=== PATIENT | female | born 1990 | race Caucasian/White ===

== ENCOUNTER 2018-03-26 13:12 | Day surgery (SDC) | payer SELFPAY ==
[2018-03-14 10:36] VITALS: BMI 27.1
[~2018-03-26 13:12] MED LIST: BACITRACIN 15 GM TUBE TOPICAL OINTMENT ONE; BUPIVACAINE HCL/PF 2.5 MG/ML - 30 ML VIAL IJ ONE; DESFLURANE GAS 240 ML BOTTLE IH ONE; DEXAMETHASONE SOD PHOSPHATE 4 MG/1 ML VIAL ONE; EPINEPHrine/PF 1 MG/1 ML (1:1,000) AMPULE ONE; HALOPERIDOL LACTATE 5 MG/ML ONE; HEPARIN NA (PORCINE) 5,000 UNITS/ML 1ML VIAL ONE; KETOROLAC TROMETHAMINE 30 MG/1 ML VIAL ONE; LIDOCAINE HCL 1% PRESERVATIVE FREE - 30ML VIAL ONE; LIDOCAINE HCL 2% JELLY (5 ML/TUBE) ONE; MIDAZOLAM HCL 2 MG/2 ML SINGLE DOSE VIAL ONE; ONDANSETRON 4 MG/2 ML VIAL IVPB PRN; ONDANSETRON 4 MG/2 ML VIAL IVPUSH PRN; ONDANSETRON 4 MG/2 ML VIAL ONE; PROMETHAZINE HCL 25 MG/1 ML VIAL IVPUSH PRN; PROPOFOL 20 ML ONE; ROCURONIUM BROMIDE 50 MG/5 ML VIAL ONE; ceFAZolin SODIUM 1 GM VIAL ONE; fentaNYL CITRATE 250 MCG/5 ML VIAL ONE; morphine SULFATE 4 MG/ML VIAL IVPUSH PRN; oxyCODONE HCL 5 MG TABLET PO PRN
[2018-03-26] MEDS ORDERED: LACTATED RINGERS SOLUTION 1,000 ML IV SCH (13:15)
--- NOTE | 2018-03-26 13:16 | OP ---
Operative Note - Note: Operative Date: 03/26/18 Pre-Operative Diagnosis: abdominal adiposity Operation: abdominoplasty with liposuction Post-Operative Diagnosis: Same as Pre-op Surgeon: Don Bazzi Anesthesia: General Operative Report Dictated: Yes
[2018-03-26] MEDS: CEFAZOLIN 1 GM/D5W 1 GRAM/50 ML BAG IVPB SCH ×2 (15:41→21:30)
--- NOTE | 2018-03-26 19:08 | PN ---
Progress Note (short form) - Note Progress Note: Post op check: VSS AF All PADMA' thin and functioning well. NV in-tact, no collecions, OOB randell, anticipate DC in AM
--- NOTE | 2018-03-26 21:16 | OP ---
DATE OF OPERATION: 03/26/2018 TITLE OF PROCEDURE: Abdominoplasty with bilateral flank liposuction. PREOPERATIVE DIAGNOSIS: Abdominal lipodystrophy. POSTOPERATIVE DIAGNOSIS: Abdominal lipodystrophy. ATTENDING SURGEON: Don Bazzi MD ASSISTANTS: None. ANESTHESIA: General endotracheal. The patient is marked in the holding area, awake and aware of all incisions and resulting scars. She is given 5000 units of subcutaneous heparin preoperatively. She is brought to the operating room. IZABEL hose and sequential compression stockings are applied bilaterally. A Donohue catheter is placed after anesthesia is given. A pillow is placed below the knees. All pressure points are carefully padded. Position is carefully checked by surgical and anesthesia teams. She is prepped and draped in standard surgical fashion. A timeout is called. Patient is given 2 g of Ancef. Patient, procedure, sites, and sides are all verified. At this point, incision is made at the infrapannicular crease, and dissection is carried down to the level of the abdominal wall fascia. Dissection is then carried along the abdominal wall fascia to the level of the umbilicus. The umbilicus is then circumcised and developed on a fibrofatty stalk to the base of the abdominal muscular fascia. At this point, dissection is then continued cephalad to the xiphoid process and the midline costal margins bilaterally. Midline is identified, and a midline plication is performed with a series of interrupted, buried number 1 Prolene suture and [id number] sutures both above and below the umbilicus. A second layer of running locking number 1 Prolene suture is used to reinforce the plication both above and below the umbilicus. The umbilicus is preserved with good with both superior and inferior. The flap is trimmed of subscarpa's fat. Hemostasis then meticulously achieved. A total of 40 mL of 0.25% Marcaine plain is then injected into the fascia. Patient is brought to a 30-degree, seated, upright position where the abdominoplasty flap is translocated, and excess skin and fat are marked and excised. The distal central tip of the flap is pink and viable with good dermal bleeding. With the skin flap tailor tacked in position, the umbilicus is then marked for translocation. A fatty core is removed from the abdominoplasty flap for translocation in a standard Star Trek pattern with an inferior notch. The umbilicus is translocated through this defect and is secured with a series of interrupted, buried, deep dermal 3-0 Monocryl suture and a series of interrupted and running 5-0 nylon suture. Size 10 flat PADMA drains are then placed, one from the pubic skin and one on either end of the incision. At this point, wetting solution is infiltrated into the tissues for liposuction. The wetting solution is 1 L of normal saline with 1 ampule of epinephrine. There is no lidocaine. A total of 1 L is infiltrated. After 20 minutes, liposuction is performed with a power-assisted MicroAire system, a 5-mm cannula. A total of 350 mL of lipoaspirate per flank is yielded. Drains are secured with 2-0 silk drain suture. Closure is then performed with a series of interrupted, buried, Lobito layer, superficial fascial system 0 Vicryl sutures, followed by a series of interrupted, buried, deep dermal 3-0 Monocryl suture, followed by a running 3-0 Monocryl V-Loc mid-dermal suture. Several 4-0 nylons are used to align the skin edges. Dressings are applied with 1/2-inch Steri-Strips full length; bacitracin and Xeroform in the umbilicus; 4 x 4 and ABD gauze to the abdomen; an abdominal binder. Patient is maintained in a flexed position, transferred to a hospital bed, and transferred to Recovery without complication. Anaya [id number]
[2018-03-26] MEDS: oxyCODONE HCL 5 MG TABLET PO PRN (22:46)
[2018-03-27] MEDS: CEFAZOLIN 1 GM/D5W 1 GRAM/50 ML BAG IVPB SCH ×2 (02:15→09:37)
[2018-03-27 02:39] VITALS: TEMP 98.3
[2018-03-27] MEDS: oxyCODONE HCL 5 MG TABLET PO PRN (06:31)
[2018-03-27 06:37] VITALS: BP 123/68; PULSE 91
[2018-03-27] MEDS ORDERED: HEPARIN NA (PORCINE) 5,000 UNITS/ML 1ML VIAL SQ SCH (08:00)
--- NOTE | 2018-03-27 10:40 | PN ---
Progress Note, Physician Chief Complaint: s/p abdominoplasty post op day one History of Present Illness: under general anesthesia - Current Medication List Current Medications: Active Medications Heparin Sodium (Porcine) (Heparin -) 5,000 unit SQ BID@0800,1999 [facility] Last Admin: 03/27/18 08:30 Dose: 5,000 unit Lactated Ringer's (Lactated Ringers Solution) 1,000 mls @ 75 mls/hr IV ASDIR MAYTE Cefazolin Sodium (Ancef 1 Gm Premixed Ivpb -) 1 gram in 50 mls @ 100 mls/hr IVPB Q6H-IV MAYTE Stop: 04/01/18 14:59 Last Admin: 03/27/18 09:37 Dose: 100 mls/hr Morphine Sulfate (Morphine Sulfate) 2 mg IVPUSH Q4H PRN PRN Reason: PAIN LEVEL 6-10 Last Admin: 03/26/18 18:44 Dose: 2 mg Ondansetron HCl (Zofran Injection) 8 mg IVPB Q6H PRN PRN Reason: NAUSEA Oxycodone HCl (Roxicodone -) 10 mg PO Q4H PRN PRN Reason: PAIN LEVEL 4 - 6 Last Admin: 03/27/18 06:31 Dose: 10 mg - Objective Vital Signs: Vital Signs Temperature 98.3 F 03/27/18 05:00 Pulse Rate 91 H 03/27/18 05:00 Respiratory Rate 18 03/27/18 05:00 Blood Pressure 123/68 03/27/18 05:00 O2 Sat by Pulse Oximetry (%) 99 03/27/18 08:12 Constitutional: Yes: Well Nourished Cardiovascular: Yes: WNL Respiratory: Yes: WNL Gastrointestinal: Yes: WNL Assessment/Plan No anesthetic complications or complaints, pain well controlled. dept of anesthesia will sign off care at this time
--- NOTE | 2018-03-27 11:59 | PN ---
Progress Note (short form) - Note Progress Note: VSS AF, healing well. PADMA all thin and functioning OK fof discharge home
--- NOTE | 2018-03-29 09:10 | PATH ---
Surgical Pathology Report Patient Name: JUSTIN ROQUE Med. Rec. #: [id number] /Age/Gender: 1990 (Age: 27) / F Account: [id number] Location: [facility] Taken: 03/26/2018 Received: 03/26/2018 Reported: 03/29/2018 Physicians: Don Bazzi Specimen(s) Received ABDOMINAL SKIN AND FAT Clinical History Cosmetic Final Diagnosis ABDOMINAL SKIN AND FAT, ABDOMINOPLASTY: UNREMARKABLE SKIN AND FIBROADIPOSE TISSUE. MACROSCOPIC DIAGNOSIS. Electronically Signed Abena Brice M.D. Gross Description Received in formalin labeled "abdominal skin and fat," is a 2276 g, 33.0 x 20.0 x 5.0 cm aggregate of multiple perez, irregular, unremarkable portions of skin with underlying soft tissue. Sectioning reveals yellow, lobulated adipose tissue. No lesions are identified. No sections are submitted, gross only. /03/28/2018 saudi03/28/2018
== END 2018-03-27 15:00 | disposition home or self-care (01) ==
LOC: FM/S 13:12 → FASUSAT 13:12 → FASU 13:12 → FM/S 14:30 → FASUSAT 03-27 15:00
PROVIDERS: ATTEND Plastic Surgery
PROC: 0J080ZZ Alteration of Abdomen Subcutaneous Tissue and Fascia, Open Approach (ICD-10-PCS; principal; 2018-03-26 08:45)
PROC: 0J083ZZ Alteration of Abdomen Subcutaneous Tissue and Fascia, Percutaneous Approach (ICD-10-PCS; 2018-03-26 08:45)
DX: Z41.1 Encounter for cosmetic surgery (principal); E88.1 Lipodystrophy, not elsewhere classified
CPT/HCPCS: 84703; 88300-TC; 94760; J1644